=== PATIENT | female | born 1995 | race African-American/Black ===

== ENCOUNTER 2017-03-15 23:01 | Emergency (ER) | payer SELFPAY ==
--- NOTE | ~2017-03-15 | CR108 ---
[facility] A Service of [facility] & [facility] RADIOLOGY TEXT RESULTS PATIENT: ANSON CHU LOCATION: SED : 95 UNIT #: [id number] AGE: [address]: David Minor SEX: F ORDER DR: [id number] [place] [id number] E MR#: [id number] Acc #: [id number] NAME: ANSON CHU : 1995 SEX: F STUDY DATE/TIME: 03/15/2017 23:29 UNIT: SED ROOM: STUDY DESCRIPTION: CR Finger 2 View 2nd Lt Attending Physician: David iMnor P.A.-C. Ordering Physician: David Minor P.A.-C. Primary Care Physician: Primary Care Physician No MEDICAL IMAGING REPORT This report is preliminary unless electronic signature is present. EXAM Left index finger 03/15/2017 23:29 INDICATION Pain and burning in the finger for about 30 minutes after slamming finger in car door. FINDINGS 3 views of the left second digit were obtained. No fracture or malalignment is seen. The soft tissues are normal. IMPRESSION Normal left second digit. Dictated by... Navdeep Grove Jr., M.D. THIS IS AN ELECTRONICALLY VERIFIED REPORT Navdeep Grove Jr., M.D. at 03/16/2017 9:12 PM TISH/randy TD: 03/16/2017 08:09 JOB #: [id number] MEDICAL IMAGING REPORT Page 1 of 1
[~2017-03-15 23:01] MED LIST: AMOXICILLIN250 MG PO; AUGMENTIN PO; DIFLUCAN100 MG PO; DOXYCYCLINE HY100 M1 PO; FIORINAL CAPSUL1 CAP PO; FLEXERIL10 MG PO; HEADACHE MED; INDERAL20 MG PO; LORTAB 7.51 TAB 7.5/ PO; NO MEDICATIONS; PRILOSEC20 M1 PO; TOPAMAX; TOPROL XL50 MG PO; VOLTAREN75 MG PO
[2017-03-15] MEDS ORDERED: AMLODIPINE BESYL5 MG PO (23:10)
[2017-03-15] MEDS ORDERED: HYDROXYZINE PAM25 M1 PO (23:11)
== END 2017-03-16 00:13 | disposition home or self-care (01) ==
LOC: SED 23:01
DX: S60.022A Contusion of left index finger without damage to nail, initial encounter (principal); I10 Essential (primary) hypertension; F17.210 Nicotine dependence, cigarettes, uncomplicated; W23.0XXA Caught, crushed, jammed, or pinched between moving objects, initial encounter; Z88.6 Allergy status to analgesic agent; Z79.82 Long term (current) use of aspirin
CPT/HCPCS: 73140; 99283